=== PATIENT | female | born 1940 | race Caucasian/White ===

== ENCOUNTER 2017-09-11 12:04 | Inpatient (IN) | payer OTHER, MEDICARE ==
--- NOTE | 2017-09-11 12:35 | EDPHY ---
H & P Stated Complaint: L leg weakness Time Seen by Provider: 09/11/17 12:30 HPI/ROS: CHIEF COMPLAINT: Left leg weakness HISTORY OF PRESENT ILLNESS: The patient presents the emergency department with a week of left leg weakness. She reports a sensation of tripping over her foot and dragging. She reports some discoordination involving her left leg. She has no complaints of back pain or radicular pain. She has no upper extremity complaints. She has no complaints of headache, fall or trauma. She does have a history of treated colon cancer. The patient denies fever or additional acute complaints. REVIEW OF SYSTEMS: A comprehensive 10 point review of systems is otherwise negative aside from elements mentioned in the history of present illness. Source: Patient - Personal History Current Tetanus Diphtheria and Acellular Pertussis (TDAP): Yes Tetanus Vaccine Date: 07/2014 - Medical/Surgical History Hx Asthma: No Hx Chronic Respiratory Disease: No Hx Diabetes: No Hx Cardiac Disease: No Hx Renal Disease: No Hx Cirrhosis: No Hx Alcoholism: No Hx HIV/AIDS: No Hx Splenectomy or Spleen Trauma: No Other PMH: PMH- GLAUCOMA, BASAL CELL CARCINOMA. PSH- EYE SURGERIES, hyst 1971, COPD, colon ca - Social History Smoking Status: Former smoker - Physical Exam Exam: General Appearance: Alert, no distress Eyes: Pupils equal and round no pallor or injection ENT, Mouth: Mucous membranes moist Respiratory: There are no retractions, lungs are clear to auscultation Cardiovascular: Regular rate and rhythm Gastrointestinal: Abdomen is soft and nontender, no masses, bowel sounds normal Neurological: Alert and oriented x4, 5/5 strength all 4 extremities, cranial nerves 2-12 intact Skin: Warm and dry, no rashes Musculoskeletal: Neck is supple nontender Extremities: symmetrical, full range of motion Constitutional: Initial Vital Signs Temperature (C) 36.9 C 09/11/17 12:11 Heart Rate 89 09/11/17 12:11 Respiratory Rate 16 09/11/17 12:11 Blood Pressure 181/103 H 09/11/17 12:11 O2 Sat (%) 92 09/11/17 12:11 O2 Delivery Mode Room Air Allergies/Adverse Reactions: No Known Allergies Allergy (Verified 06/27/15 16:59) Home Medications: Medication Instructions Recorded Multivit, Iron, Min No. 8, FA 1 each PO DAILY 10/09/10 [Therapeutic-M Tablet] Herbals/Supplements -Info Only 1 ea PO DAILY 09/11/17 Latanoprost 0.005% [Xalatan 0.005% 1 drops EACHEYE HS 09/11/17 (*)] Medical Decision Making - Diagnostics Imaging Results: Imaging Impressions Brain MRI 09/11/17 12:50 Impression: 1. Acute lacunar infarct right thalamus without hemorrhage or mass effect. 2. 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 2. Basilar tip 8 mm aneurysm. 4. Mild cerebral atrophy. 5. Moderate microvascular ischemic gliosis throughout the white matter bilateral cerebral hemispheres. Findings and recommendations discussed with Emergency Department physician, Jose Miguel Michael at 1500 hour, 09/11/2017. Final report concurs with initial preliminary interpretation. Lumbar Spine MRI 09/11/17 12:50 Impression: 1. Mild central canal stenosis and bilateral neural foraminal stenosis, predominantly at L4-L5 and L5-S1, secondary to moderate degenerative disk disease and bilateral facet arthropathy with disk/osteophyte complexes as described above. 2. Please see above findings at specific disk levels. Findings and recommendations discussed with Emergency Department physician, Dr. Jose Miguel Michael at 1447 hours on September 11, 2017. Final report concurs with initial preliminary interpretation. ED Course/Re-evaluation: The patient presents to the ED for evaluation of left leg weakness and clumsiness for the past week. The patient denies any additional acute neurologic complaints. I did not detect significant weakness on exam. The patient was taken for an MRI of the brain and lumbar spine which demonstrate an acute thalamic stroke. The patient's NIH stroke scale is currently 0-1. She does not meet the criteria for thrombolytic therapy based upon the duration of her symptoms. The patient had an IV established. There is a questionable aneurysm noted in right MCA and basilar tip. The patient will be admitted to the hospital for further evaluation of her stroke. Consultation is made with Dr. Cameron from the hospitalist service. I did consult with Dr. Baeza from neurosurgery who will see the patient in consultation regarding the aneursym seen on MRI. Formal CT angiography has been ordered. Differential Diagnosis: Differential diagnosis considered includes stroke, lumbar pathology, intracranial hemorrhage, dissection, aneurysm - Data Points Laboratory Results: CBC: Normal BMP: Normal PT: Normal Labs review by myself. Departure - Departure Disposition: [facility] Inpatient Acute Clinical Impression: Acute ischemic stroke Condition: Fair
[2017-09-11] MEDS ORDERED: GADOBUTROL 10 ML VIAL IVP ONE (14:27)
[2017-09-11 15:00] LABS: PLATELET COUNT 244 10^3/uL (150-400)
[2017-09-11 15:10] LABS: INR 0.99 (0.83-1.16); PROTIME(PATIENT) 13.3 SEC (12.0-15.0)
[2017-09-11] MEDS ORDERED: IOPAMIDOL (ISOVUE 370) 100 ML BTL IV ONE (15:12)
[2017-09-11] MEDS ORDERED: ONDANSETRON DISINTEGRATING 4 MG TAB PO PRN (15:29)
[2017-09-11] MEDS ORDERED: ACETAMINOPHEN 325 MG TAB PO PRN (15:29)
[2017-09-11] MEDS ORDERED: ONDANSETRON 4 MG/2 ML VIAL IVP PRN (15:29)
--- NOTE | 2017-09-11 15:34 | CPEKG ---
Heart Rate: 97 RR Interval: 619 P-R Interval: 148 QRSD Interval: 92 QT Interval: 372 QTC Interval: 473 P Delevan: 67 QRS Delevan: -45 T Wave Delevan: 61 EKG Severity - ABNORMAL ECG - EKG Impression: MULTIPLE VENTRICULAR PREMATURE COMPLEXES EKG Impression: LAD, CONSIDER LEFT ANTERIOR FASCICULAR BLOCK EKG Impression: SINUS Electronically Signed By: Tatum Flores 11-Sep-2017 22:21:59
--- NOTE | 2017-09-11 16:35 | GHP ---
[f rep st] HISTORY AND PHYSICAL DATE OF ADMISSION: 09/11/2017 HISTORY OF PRESENT ILLNESS: The patient is a pleasant 77-year-old female with minimal past medical h istory who presents with a several-day history of lack of coordination in her left leg. It began Thu evening, today is Thursday. She said that she felt generalized weakness, she actually had a fall o n Thursday evening because of leg weakness. She denies numbness or tingling in her left leg. She had a little bit of lack of coordination with her left hand, but she did not drop anything. She is right -handed. She denied slurred speech and denied facial asymmetry. She did not seek care because she j ust was frankly hoping it would go away. She has never had previous symptoms like this. She does no t have diabetes or high blood pressure. She has not had palpitations. FAMILY HISTORY: Notable for coronary artery disease in her brother and stroke in her father. REVIEW OF SYSTEMS: Complete 10-point review of systems conducted, negative except as noted in the HP I. PAST MEDICAL HISTORY: Dupuytren's contracture. ALLERGIES: No known drug allergies. MEDICATIONS: Home medications are latanoprost eyedrops, multivitamin. SOCIAL HISTORY: She has 2 glasses of wine per night. She does not smoke cigarettes. She is origina y from [place]. FAMILY HISTORY: As in the HPI. PHYSICAL EXAMINATION: PRESENTING VITAL SIGNS: Temperature 37, blood pressure 181/103, pulse 89, carlos athing 16 times a minute, 98% on room air. GENERAL: No acute distress. HEENT: Sclerae anicteric. Oropharynx clear. Mucous membranes moist. NECK: Supple. No lymphadenopathy or JVD. LUNGS: Clear to auscultation bilaterally. HEART: S1, S2 without murmurs. ABDOMEN: Soft, nontender, nondistend ed. LOWER EXTREMITIES: No edema. Calves nontender. SKIN: Without rash. NEUROLOGIC: Intact stre ngth and sensation in the left leg and left hand. Cranial nerves 2-12 are intact. Speech is fluent. I did not see her walk. DIAGNOSTIC STUDIES: EKG interpreted by me shows sinus tachycardia at 97 with a PVC. There are no ST or T-wave changes. CBC normal. Coags normal. Sodium 142, potassium 4.1, chloride 107, bicarb 23, BUN 12, creatinine 0. 7, glucose 82. Brain MRI shows acute lacunar infarct in the right thalamus without hemorrhage or mass effect. Right MCA artery 9 mm aneurysm, basilar tip 8 mm aneurysm, moderate microvascular ischemic gliosis. Lumbar spine MRI shows mild central canal stenosis, probably L4-L5, otherwise unremarkable. I discussed the case Dr. Agustin Michael. CTA of the head and neck is pending. ASSESSMENT/PLAN: A 77-year-old female with acute stroke. 1. Stroke. This is acute, but she is well out of the range for tPA. Secondary stroke workup will c ommence including telemetry, echo, lipid panel. She does not have diabetes. There is little utility in checking hemoglobin A1c with normal blood sugars. 2. We will arrange PT and OT. I will continue her on aspirin. Check a lipid panel. 3. Hypertension. The patient is hypertensive now. We will follow up on her blood pressure in a bit . These blood pressures are within the realm of what we would not treat. 4. Intracranial aneurysm. CTA is pending. Neurosurgery will see the patient in consultation. 5. Glaucoma. Continue her eyedrops. DISPOSITION: Inpatient status. /[id number]/MODL
--- NOTE | 2017-09-11 16:53 | PDMN ---
Medical Necessity Medical necessity: est los>2mn for acute stroke, intracranial aneurysm, and elevated BP; several day hx of lack of coordination LLE/LUE w/fall, weakness admit for w/u, telemetry, PT/OT, and NS consult; per order and H&P 09/11/17
[2017-09-11] MEDS ORDERED: LATANOPROST 0.005% 2.5 ML OPHT DROPS EACHEYE SCH (21:00)
[2017-09-12] MEDS ORDERED: Herbals/Supplements -Info Only PO SCH (09:00)
[2017-09-12] MEDS ORDERED: ENOXAPARIN 40 MG/0.4 ML SYR SC SCH (09:00)
[2017-09-12] MEDS ORDERED: ASPIRIN EC 81 MG TAB PO SCH (09:00)
[2017-09-12] MEDS ORDERED: MULTIVITAMINS W-MINERALS 1 EACH TAB PO SCH (09:00)
--- NOTE | 2017-09-12 11:11 | NEUROPROG ---
Assessment: HOSPITAL NEUROLOGY CONSULT REQUESTING: Lamont Cameron MD REASON: stroke HPI: 77 year old right-handed woman with a history of colon cancer (last treated 2015 with chemotherapy), palpitations and prior smoking who presented to our ED 09/11 due to new onset left leg weakness. Patient states she noted weakness in the left leg starting 09/07. She also felt a bit uncoordinated in the left arm, but not frankly weak. Thinking back, it may have started while grocery shopping. In any case, the weakness persisted which inspired emergency evaluation on 09/11. She was evaluated in the ED and admitted for further workup of a suspected stroke. She is feeling much better today with only a minimal amount of weakness in the LLE. She has been up and walking and feels safe. She never experienced any sensory loss, speech/ language change, visual disturbance, dizziness, VALENZUELA, neck stiffness. No prior history of stroke/TIA. ROS: As per the HPI, otherwise a complete 12 point ROS was performed and is negative ALLERGIES AND MEDS: As recorded in the EMR - reviewed and reconciled PFSH: As per the intake H&P by Dr. Cameron from 09/11 Would add a history of palpitation for which she is followed by a bark skinner. Also colon cancer as noted above. She smoked for 20+ years but quit about 30 years ago. EXAM: VS reviewed in EMR. SBPs last 24 hr 144-181 GEN: WDWN laying in NAD HEENT: NCAT, sclera anicteric, conjunctiva not injected, MMM, oropharynx clear, no scalp tenderness NECK: supple, nontender, no meningismus CV: RRR s1 s2 wo m/r/c/g. Carotid pulses 2+ wo bruit NEURO: NIHSS 0 MS: awake, alert, oriented to all spheres. Speech nondysarthric. No language disturbance. Follows commands. Attends to both sides. Recent/remote memory grossly intact. Mood euthymic. Good fund of knowledge. CN: pupils 3mm round and reactive. Unable to visualize fundi. VFF. Primary gaze centered. Full ocular motility. Facial sensation preserved. Face symmetric. Hearing grossly intact to finger rub. Palatoglossal movements intact. Shoulder shrug and head turn strong. MOTOR: normal bulk/tone. No adventitial movements. 4+/5 weakness with left hip flexion, otherwise full power throughout. SENSORY: symmetric/intact LT/PP in all extremities. No extinction. COORD: no ataxia FN/HS. Nany preserved. REFLEX: plantars down. No clonus. DTRS 2/4. GAIT: deferred to PT safety eval DATA REVIEW: Labs reviewed in EMR LDL 135 TTE pending PERSONALLY INTERPRETED RESULTS AND DATA: MRI brain wow - acute lacunar infarct 1cm in greatest diameter in the right lateral thalamus. Global volume loss. Moderate amount of scattered periventricular and subcortical T2 FLAIR hyperintensities reflective of chronic microvascular ischemic changes. CTA head/neck - mixed calcific and softer plaque in the aorta and subclavian system, 55-65% stenosis of the left vertebral artery with softer plaque, carotid system patent, intracranial system with some mild scattered vascular calcification without flow limitation. 3 identifiable intracranial aneurysms - right M1-M2 [id number], basilar tip [id number], left M3 system 3x2mm. IMPRESSION AND RECOMMENDATIONS: // ACUTE ISCHEMIC STROKE // HLD // LEFT VERTEBRAL ARTERY STENOSIS // INTRACRANIAL ANEURYSMS Patient with new onset left leg weakness congruent with right thalamic infarct. 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 She has not been on medical therapy for vascular disease up until now. - continue ASA daily - would increase to 325mg given the degree of vascular disease on MRI and CTA - add high intensity statin for goal LDL < 70 - outpatient glucose monitoring with long-term goal A1c < 6.5 - goal normotension - given onset time, would start to treat this. Intervene for sustained SBPs > 160. Long-term goal after discharge SBP < 130 - of utmost importance given stroke and intracranial aneurysms. - recommend outpatient 30-day Holter given history of palpitations (and PVCs noted on tele) - PT/OT/FURNITURE BUILDER consults - stroke education - we focused on activating EMS for any stroke-like symptoms - will need neurosurgical consultation regarding intracranial aneurysms - can be done as outpatient - patient can be discharged to safe disposition once TTE interpreted - she will need to establish with a PCP for monitoring and optimization of the above noted vascular risk factors - followup with her bark skinner regarding outpatient Holter - followup with me in neurology clinic in 10 weeks - will sign off. Recall PRN Objective: Vital Signs Temp Pulse Resp BP Pulse Ox 36.5 C 96 18 164/76 H 94 09/12/17 07:57 09/12/17 07:57 09/12/17 07:57 09/12/17 07:57 09/12/17 07:57 Laboratory Results 09/11/17 14:45 09/11/17 14:45 09/11/17 09/12/17 09/13/17 05:59 05:59 05:59 Intake Total 500 Balance 500 PT 13.3 SEC (12.0-15.0) 09/11/17 14:45 INR 0.99 (0.83-1.16) 09/11/17 14:45 Allergies/Adverse Reactions: No Known Allergies Allergy (Verified 06/27/15 16:59)
[2017-09-12 11:46] VITALS: BP 182/87
--- NOTE | 2017-09-12 13:12 | ECHO ---
[email or web address] [address] [address] Main: [phone] Fax: Transthoracic Echocardiogram Name: MYLENE SEN MR#: [id number] Study Date: 09/12/2017 Study Time: 09:32 AM Date of : 1940 Age: 77 year(s) Height: 160 cm (63 in.) Weight: 52.16 kg (115 lb.) BSA: 1.53 m2 Gender: Female Examination: Echo Indication: Image Quality: Adequate Contrast: Requested by: Daryn Cameron BP: 164 mmHg/76 mmHg Heart Rate: Rhythm: Indication: Procedure Staff Engineering And Development Director: Araceli Cortes [facility] Reading Physician: Freya Evans MD Requesting Provider: Conclusions: Normal size left ventricle. No LV hypertrophy. Normal global systolic LV function. EF is 62 %. No regional wall motion abnormality. Grade 1 diastolic dysfunction (abnormal relaxation). Normal size right ventricle. Normal RV function. Mild mitral valve regurgitation is present. Mild tricuspid regurgitation is present. The pulmonary artery pressure is normal. Right ventricular systolic pressure measures 24mmHg. There is no previous echocardiogram for comparison. Measurements: Chambers Valvular Assessment AV/MV Valvular Assessment TV/PV Normal Normal Normal Name Value Range Name Value Range Name Value Range Ao Verito (2D): 2.7 cm (1.4 cm-2.6 AV meanP mmHg ( - ) TR Vmax: 2.19 mm/s ( - ) cm) WILVER (VTI): 1.8 cm ( - ) TR PGmax: 19 mmHg ( - ) IVSd (2D): 0.8 cm (0.6 cm-1.1 MV E Vmax: 0.52 m/s ( - ) syst. PAP: 24 mmHg ( - ) cm) MV A Vmax: 0.85 m/s ( - ) PV Vmax: 0.75 m/s (0.6 m/s-0.9 LVDd (2D): 3.9 cm (3.9 cm-5.3 MV E/A: 0.61 ( - ) m/s) cm) MV PHT: 0.091 s ( - ) PV PGmax: 2 mmHg ( - ) LVDs (2D): 2.2 cm (2.1 cm-4 cm) MVA (PHT): 2.4 s ( - ) LVPWd (2D): 0.8 cm ( - ) LVOTd 1.9 cm 1.9 cm mm LVEF (BP): 62 % (>=55 %) Patient: MYLENE SEN Study Date: 09/12/2017 Page 1 of 2 09:32 AM RVDd(2D): 2.5 cm (1.9 cm-3.8 cmmm) Continued Measurements: Chambers Valvular Assessment AV/MV Valvular Assessment TV/PV Name Value Name Value Name Value LADs: 2.5 cm MV DecTime: 292 m/s CVP (est.): 5 mmHg LADs Lon.1 cm MV E' Septal: 0.05 m/s LA Area: 10.6 cm2 MV E/E' Septal: 10.40 LA Volume: 30 ml MV E/E' Lateral: 8.60 LA Volume Index: 19.6 ml/m2 RA Area: 10.7 cm2 Additional Vessels Name Value Ao Ascendin.1 cm Findings: Left Ventricle: Normal size left ventricle. No LV hypertrophy. Normal global systolic LV function. EF is 62 %. No regional wall motion abnormality. Grade 1 diastolic dysfunction (abnormal relaxation). Right Ventricle: Normal size right ventricle. Normal RV function. Left Atrium: The left atrium is normal in size. Right Atrium: The right atrium is normal in size. Mitral Valve: The mitral valve is normal in appearance and function. Mild mitral valve regurgitation is present. No mitral stenosis is present. Aortic Valve: The aortic valve is normal in appearance and function. There is no aortic valve regurgitation. No aortic valve stenosis is present. Tricuspid Valve: The tricuspid valve is normal in appearance and function. Mild tricuspid regurgitation is present. The pulmonary artery pressure is normal. Right ventricular systolic pressure measures 24mmHg. Pulmonic Valve: The pulmonic valve is normal in appearance and function. There is no pulmonic regurgitation seen. Aorta: The aorta is normal. Normal size aortic root measuring 2.7 cm. Normal size ascending aorta measuring 3.1 cm. IVC: The IVC is normal sized. Pericardium: No pericardial effusion. No pleural effusion. (No Signature Object) Patient: MYLENE SEN Study Date: 09/12/2017 Page 2 of 2 09:32 AM [id number]
--- NOTE | 2017-09-12 16:03 | ASMTCMCOM ---
CM Note CM Note Notes: Pt in for thalamic stroke, she came in after having lower leg weakness. Neurology consulted and signed off, pt will follow up outpatient. Pt also recommended to follow up outpatient with cardiology for outpatient Holter. PT/OT/POULTRY SCIENTIST clear pt for home. Pt has a sister who is local. Pt medically stable for d/c, no CM d/c needs identified. Date Signed: 09/12/2017 04:03 PM Electronically Signed By:MANNIE Martinez
== END 2017-09-12 17:57 | disposition home or self-care (01) | DRG 66 ==
LOC: F3N 16:28
PROVIDERS: ADMIT Internal Medicine; ATTEND Internal Medicine
DX: I63.511 Cerebral infarction due to unspecified occlusion or stenosis of right middle cerebral artery (principal); I63.431 Cerebral infarction due to embolism of right posterior cerebral artery; G83.14 Monoplegia of lower limb affecting left nondominant side; R29.701 NIHSS score 1; I67.1 Cerebral aneurysm, nonruptured; I65.02 Occlusion and stenosis of left vertebral artery; J44.9 Chronic obstructive pulmonary disease, unspecified; Z87.891 Personal history of nicotine dependence; H40.9 Unspecified glaucoma; E78.5 Hyperlipidemia, unspecified; Z85.038 Personal history of other malignant neoplasm of large intestine; Z85.828 Personal history of other malignant neoplasm of skin
CPT/HCPCS: 92523-GN; 97161-GP; 97165-GO; A9585; G8978-GP-CI; G8979-GP-CI; G8987-GO-CI; G8988-GO-CI; G8989-GO-CI; G9165-GN-CH; G9166-GN-CH; G9167-GN-CH; J1650; Q9967

== ENCOUNTER 2017-09-24 13:07 | Day surgery (SDC) | payer OTHER, MEDICARE ==
[2017-09-24] MEDS ORDERED: fentaNYL 100 MCG/2 ML INJ IVP ONE (13:10)
[2017-09-24] MEDS ORDERED: NS 500 ML IV ONE (13:10)
[2017-09-24] MEDS ORDERED: BENZOCAINE UNIT DOSE SPRAY HURRICAINE MM ONE (13:10)
[2017-09-24] MEDS ORDERED: MIDAZOLAM 2 MG/2 ML VIAL IVP ONE (13:10)
[2017-09-24] MEDS ORDERED: NALOXONE HCL 0.4 MG/ML INJ IVP PRN (14:26)
[2017-09-24] MEDS ORDERED: ALBUTEROL 3 ML DEYVIAL IH PRN (14:26)
--- NOTE | 2017-09-24 14:26 | PDANEPAE ---
ANE Past Medical History - Pulmonary History Hx Oxygen in Use at Home: No Hx Sleep Apnea: No - Endocrine History Hx Diabetes: No - Chronic Pain History Chronic Pain: No ANE Review of Systems Review of Systems: ANE Patient History - Allergies Allergies/Adverse Reactions: No Known Allergies Allergy (Verified 06/27/15 16:59) - Home Medications Home Medications: Multivit, Iron, Min No. 8, FA [THERAPEUTIC-M TABLET] 1 each PO DAILY 10/09/10 [ Last Taken Unknown] Latanoprost 0.005% [Xalatan 0.005% (*)] 1 drops EACHEYE HS 09/11/17 [Last Taken Unknown] - Smoking Hx Smoking Status: Former smoker ANE Physical Exam - Airway Neck exam: FROM Mallampati Score: Class 1 Mouth exam: normal dental/mouth exam - Pulmonary Pulmonary: no respiratory distress, no rales or rhonchi, clear to auscultation - Cardiovascular Cardiovascular: regular rate and rhythym, no murmur, rub, or gallop, tachycardia - ASA Status ASA Status: III ANE Anesthesia Plan Anesthesia Plan: GA with mask
[2017-09-24] MEDS ORDERED: PROPOFOL 200 MG/20 ML VIAL ONE (14:27)
--- NOTE | 2017-09-24 14:46 | PDHPUP ---
History & Physical Update H&P update statement: This history and physical update is based on an assessment of the patient which was completed after admission or registration (within 24 hours), but prior to the surgery/procedure. H&P update: H&P reviewed & patient examined, no change in patient's condition since H&P completed (Reviewed Ly Quiñonez's note dated 09/21/2017)
--- NOTE | 2017-09-24 15:04 | POSTANESTH ---
Post Anesthetic Evaluation Cardiovascular Status: Normal, Stable Respiratory Status: Normal, Stable Level of Consciousness/Mental Status: Can Participate in Eval Pain Control: Adequate, Prn Tx Ordered Nausea/Vomiting Control: Adequate, Prn Tx Ordered Complications Possibly Related to Anesthesia: None Noted
--- NOTE | 2017-09-24 18:05 | ECHO ---
[email or web address] [address] [address] Main: [phone] Fax: Transesophageal Echocardiography Name: MYLENE SEN MR#: [id number] Study Date: 09/24/2017 Study Time: 02:35 PM Date of : 1940 Age: 77 year(s) Height: ( ) Weight: ( ) BSA: Gender: Female Examination: RAMÓN Indication: stroke; source of emboli Image Quality: Contrast: I.V. dose of agitated saline Requested by: Freya Evans Heart Rate: Rhythm: BP: / Procedure Staff Human Service Coordinator: Colleen White [facility] Reading Physician: Freya Evans MD Requesting Provider: RAMÓN Exam Details Contrast: I.V. dose of agitated saline Conclusions: Normal size left ventricle. Normal global systolic LV function. Normal size right ventricle. Normal RV function. An agitated saline study was performed and was negative for intracardiac shunting. No thrombus is noted in the left atrium. No thrombus in left appendage. Mild to moderate mitral regurgitation. Mild plaque in the ascending aorta. Trivial pericardial effusion. Measurements: Chambers Valvular Assessment AV/MV Valvular Assessment TV/PV Normal Normal Normal Name Value Range Name Value Range Name Value Range Additional Measurements: Findings: Left Ventricle: Normal size left ventricle. Normal global systolic LV function. Right Ventricle: Patient: MYLENE SEN Study Date: 09/24/2017 Page 1 of 2 02:35 PM Normal size right ventricle. Normal RV function. Left Atrium: The left atrium is normal in size. An agitated saline study was performed and was negative for intracardiac shunting. No thrombus is noted in the left atrium. Left Atrial Appendage: No thrombus in left appendage. Right Atrium: The right atrium is normal in size. Mitral Valve: The mitral valve is normal in appearance. Mild to moderate mitral regurgitation. Aortic Valve: The aortic valve is tri-leaflet and functions normally. There is no significant aortic valve regurgitation. No aortic valve stenosis is present. Tricuspid Valve: The tricuspid valve appears normal. Trivial tricuspid valve regurgitation. Pulmonic Valve: The pulmonic valve is normal in appearance and function. Trivial pulmonic valve regurgitation. Aorta: Mild plaque in the ascending aorta. Pericardium: Trivial pericardial effusion. l1n (No Signature Object) Patient: MYLENE SNE Study Date: 09/24/2017 Page 2 of 2 02:35 PM [id number]
== END 2017-09-24 16:13 | disposition home or self-care (01) ==
LOC: FCATH 13:07
PROVIDERS: ATTEND Internal Medicine Cardiovascular Disease
PROC: B246ZZ4 Ultrasonography of Right and Left Heart, Transesophageal (ICD-10-PCS; principal; 2017-09-24)
DX: I70.0 Atherosclerosis of aorta (principal); I31.3 Pericardial effusion (noninflammatory); I63.9 Cerebral infarction, unspecified; I10 Essential (primary) hypertension; E78.5 Hyperlipidemia, unspecified
CPT/HCPCS: J2704